=== PATIENT | female | born 1960 | race African-American/Black ===

== ENCOUNTER 2016-05-10 15:13 | Emergency (ER) | payer SELFPAY ==
--- NOTE | 2016-05-10 16:12 | ERRECORD ---
[facility] EMERGENCY RECORD HPI GENERAL (15:33 MBRI) CHIEF COMPLAINT: Patient presents for evaluation of 55 yo female presents to the ED after having been found sitting outside by someone who knew her. They apparently called the police and she was brought to the ED. Pt is without complaints at this time. No pain, no injuries, no diff breathing, no SI/HI reported. No hallucinations reported. She denies any issues and states feeling her normal state of health. [facility] to stay there at this time. HISTORIAN: History provided by patient. LOCATION: No localizing symptoms. QUALITY: Unable to describe the quality of the pain. TIME COURSE: Patient unable to describe onset of symptoms. ASSOCIATED WITH: No associated symptoms, Denies any other complaints. EXACERBATED BY: Patient's condition exacerbated by nothing. RELIEVED BY: Patient's condition relieved by nothing. ROS (15:35 MBRI) CONSTITUTIONAL: Negative constitutional review of systems, Historian denies chills, denies fever. EYES: Negative eye review of systems. ENT: Historian denies rhinorrhea, denies sore throat. CARDIOVASCULAR: Historian denies chest pain, denies dyspnea on exertion. RESPIRATORY: Historian denies cough, denies shortness of breath. GI: Negative gastrointestinal review of systems, Historian denies abdominal pain, denies diarrhea, denies nausea, denies vomiting. MUSCULOSKELETAL: Historian denies injury, Denies any musculoskeletal pain. SKIN: Negative skin review of systems, Historian denies skin changes. NEUROLOGIC: Negative neurologic review of systems, Historian denies focal weakness, denies sensory changes. PSYCHIATRIC: Negative psychiatric review of systems, Historian denies anxiety, denies depression, denies hallucinations, denies homicidal ideation, denies suicidal ideation. PAST MEDICAL HISTORY (15:26 LGIB) MEDICAL HISTORY: Notes: pt states "I have no health problems", irregular heart rhythm,, Past medical history includes history of hypertension. (poor historian). FEMALE SURGICAL HISTORY: pacemaker. PSYCHIATRIC HISTORY: Psychiatric history includes, anxiety. SOCIAL HISTORY: Patient denies alcohol use, Patient denies drug use, Patient has no smoking history. KNOWN ALLERGIES &a-1R&a+25V*p+0X*s8713N*c202B*c15G*c2P*p-0X&a-25V&a+1R Name: Farrah Jon : 1960 F55 MedRec: [id number] AcctNum: [id number] Prepared: Maggie May 13, 2016 10:53 by Interface Page 1 of 3 pMD [facility] EMERGENCY RECORD No Known Drug Allergies CURRENT MEDICATIONS (15:48 LGIB) None VITAL SIGNS (15:40 LGIB) VITAL SIGNS: BP: 158/100, Pulse: 76, Resp: 16 (Non-Labored), Temp: 98.2 (Oral), Pain: 0, O2 sat: 96 on Room Air, Time: 05/10/2016 15:40. PHYSICAL EXAM (15:35 MBRI) CONSTITUTIONAL: Vital Signs Reviewed, Nursing notes reviewed. HEAD: Head exam included findings of head atraumatic, normocephalic. EYES: Eye exam included findings of eyelids normal to inspection, Pupils equally round and reactive to light, Extraocular muscles intact. ENT: Ear exam normal, external ear normal, tympanic membranes normal, Pharynx exam normal. NECK: Neck exam normal, no cervical adenopathy, no tenderness. RESPIRATORY CHEST: Respiratory exam included findings of no respiratory distress, Breath sounds clear, No wheezing, No rales, No rhonchi. CARDIOVASCULAR: Cardiovascular exam included findings of heart rate regular rate and rhythm, Heart sounds normal, Carotids normal. ABDOMEN FEMALE: Abdominal exam included findings of abdomen nontender, Bowel sounds normal, no peritoneal signs, no rigidity, no guarding, no rebound. BACK: Back exam included findings of normal inspection, no tenderness. UPPER EXTREMITY: Upper extremity exam included findings of inspection normal, Radial pulse normal, no cyanosis, no clubbing, no edema. LOWER EXTREMITY: Lower extremity exam included findings of inspection normal, femoral pulses normal, no cyanosis, no clubbing, no edema, no tenderness noted. NEURO: Neuro exam findings include patient oriented to person, place and time, Speech normal, no focal motor deficits. SKIN: Skin exam included findings of skin warm, dry, and normal in color. PROBLEM LIST No recorded problems DIAGNOSIS (15:31 MBRI) FINAL: PRIMARY: medical screening evaluation. PRESCRIPTION No recorded prescriptions &a-1R&a+25V*p+0X*c3645S*c202B*c15G*c2P*p-0X&a-25V&a+1R Name: Farrah Jon : 1960 F55 MedRec: [id number] AcctNum: [id number] Prepared: TueMay 13, 2016 10:53 by Interface Page 2 of 3 pMD [facility] EMERGENCY RECORD DISPOSITION PATIENT: Disposition Type: Discharge, Disposition: *Discharge Home, Condition: Good. (15:31 MBRI) Patient left the department. (15:55 LGIB) Hudson: LGIB=CR Abraham, Irasema MBRI=DO Mireles Matthew &a-1R&a+25V*p+0X*d4470I*c202B*c15G*c2P*p-0X&a-25V&a+1R Name: Farrah Jon : 1960 F55 MedRec: [id number] AcctNum: [id number] Prepared: TueMay 13, 2016 10:53 by Interface Page 3 of 3 pMD MTDD
--- NOTE | 2016-05-10 16:15 | PICIS ---
[facility] EMERGENCY RECORD TRIAGE (TueMay 10, 2016 15:25 LGIB) PATIENT: NAME: Farrah Jon, AGE: 55, GENDER: female, : Tue1960, TIME OF GREET: TueMay 10, 2016 15:13, PREFERRED LANGUAGE: Bahamian, ETHNICITY: Not or , ECODE BILLING MAP: [facility], SSN: [id number], Zip Code: [address], KG WEIGHT: 115.21, PHONE: , , , PERSON ID: [id number], PAYMENT: [employer] Self Pay, PCP: none. (TueMay 10, 2016 15:25 LGIB) COMPLAINT: psych eval. (TueMay 10, 2016 15:25 LGIB) ADMISSION: URGENCY: 3 Urgent, ADMISSION SOURCE: Home, TRANSPORT: LAW ENFORCEMENT, BED: ER -04. (TueMay 10, 2016 15:25 LGIB) ASSESSMENT: Additional Triage notes: patient brought to ER because she was seen sitting outside a fast food restaurant. Per police, bystander knows her and thinks she may need assistance with her living situation. Patient denies HI or SI. Pt does not have hallucinations and is AOX4. (15:25 LGIB) SIRS SCORING: Heart Rate 55-109 (0), Temp range 96.8-101.1 (0), respiratory rate 12-24 (0), Mental Status altered: no (0), Total SIRS Score 0. (15:51 LGIB) PROVIDERS: TRIAGE NURSE: Irasema Abraham RN. (TueMay 10, 2016 15:25 LGIB) KNOWN ALLERGIES No Known Drug Allergies CURRENT MEDICATIONS (15:48 LGIB) None VITAL SIGNS (15:40 LGIB) VITAL SIGNS: BP: 158/100, Pulse: 76, Resp: 16 (Non-Labored), Temp: 98.2 (Oral), Pain: 0, O2 sat: 96 on Room Air, Time: 05/10/2016 15:40. NURSING ASSESSMENT: PSYCH/SOCIAL (15:28 LGIB) CONSTITUTIONAL: Patient complains of psych eval, Patient has no complaints. denies HI or SI. Patient brought to ER because bystander wanted to help her with her living situation. PSYCH/SOCIAL: Psychiatric/social assessment findings include affect, flat, no complaint of visual hallucinations, no complaint of auditory hallucinations, no complaint of tactile hallucinations, no suicidal ideations, no homicidal ideations, no reported overdose. SAFETY: Side rails up, Cart/Stretcher in lowest position, Call light within reach, Hospital ID band on. NURSING PROCEDURE: DISCHARGE NOTE (15:52 LSMI) DISCHARGE: Patient discharged to home, ambulating without assistance, patient walking, unaccompanied, Simple or moderate discharge teaching performed, Notes: PT AMBULATORY TO WAITING ROOM TO AWAIT RIDE. PT AOX4. &a-1R&a+25V*p+0X*f1819A*c202B*c15G*c2P*p-0X&a-25V&a+1R Name: Farrah Jon : 1960 F55 MedRec: [id number] AcctNum: [id number] Prepared: [facility] May 13, 2016 10:53 by Interface Page 1 of 4 D [facility] EMERGENCY RECORD NURSING PROCEDURE: NURSE NOTES (15:45 LSMI) NURSES NOTES: Notes: G[facility]INA DISPATCH NOTIFED OF PTS DC. STATES SHE WILL NOTIFY OFFICER DAVID. HPI GENERAL (15:33 MBRI) CHIEF COMPLAINT: Patient presents for evaluation of 55 yo female presents to the ED after having been found sitting outside by someone who knew her. They apparently called the police and she was brought to the ED. Pt is without complaints at this time. No pain, no injuries, no diff breathing, no SI/HI reported. No hallucinations reported. She denies any issues and states feeling her normal state of health. [facility] stay [facility] at this time. HISTORIAN: History provided by patient. LOCATION: No localizing symptoms. QUALITY: Unable to describe the quality of the pain. TIME COURSE: Patient unable to describe onset of symptoms. ASSOCIATED WITH: No associated symptoms, Denies any other complaints. EXACERBATED BY: Patient's condition exacerbated by nothing. RELIEVED BY: Patient's condition relieved by nothing. ROS (15:35 MBRI) CONSTITUTIONAL: Negative constitutional review of systems, Historian denies chills, denies fever. EYES: Negative eye review of systems. ENT: Historian denies rhinorrhea, denies sore throat. CARDIOVASCULAR: Historian denies chest pain, denies dyspnea on exertion. RESPIRATORY: Historian denies cough, denies shortness of breath. GI: Negative gastrointestinal review of systems, Historian denies abdominal pain, denies diarrhea, denies nausea, denies vomiting. MUSCULOSKELETAL: Historian denies injury, Denies any musculoskeletal pain. SKIN: Negative skin review of systems, Historian denies skin changes. NEUROLOGIC: Negative neurologic review of systems, Historian denies focal weakness, denies sensory changes. PSYCHIATRIC: Negative psychiatric review of systems, Historian denies anxiety, denies depression, denies hallucinations, denies homicidal ideation, denies suicidal ideation. PAST MEDICAL HISTORY (15:26 LGIB) MEDICAL HISTORY: Notes: pt states "I have no health problems", irregular heart rhythm,, Past medical history includes history of hypertension. (poor historian). FEMALE SURGICAL HISTORY: pacemaker. PSYCHIATRIC HISTORY: Psychiatric history includes, &a-1R&a+25V*p+0X*n6027X*c202B*c15G*c2P*p-0X&a-25V&a+1R Name: Farrah Jon : 1960 F55 MedRec: [id number] AcctNum: [id number] Prepared: Maggie May 13, 2016 10:53 by Interface Page 2 of 4 D [facility] EMERGENCY RECORD anxiety. SOCIAL HISTORY: Patient denies alcohol use, Patient denies drug use, Patient has no smoking history. PHYSICAL EXAM (15:35 MBRI) CONSTITUTIONAL: Vital Signs Reviewed, Nursing notes reviewed. HEAD: Head exam included findings of head atraumatic, normocephalic. EYES: Eye exam included findings of eyelids normal to inspection, Pupils equally round and reactive to light, Extraocular muscles intact. ENT: Ear exam normal, external ear normal, tympanic membranes normal, Pharynx exam normal. NECK: Neck exam normal, no cervical adenopathy, no tenderness. RESPIRATORY CHEST: Respiratory exam included findings of no respiratory distress, Breath sounds clear, No wheezing, No rales, No rhonchi. CARDIOVASCULAR: Cardiovascular exam included findings of heart rate regular rate and rhythm, Heart sounds normal, Carotids normal. ABDOMEN FEMALE: Abdominal exam included findings of abdomen nontender, Bowel sounds normal, no peritoneal signs, no rigidity, no guarding, no rebound. BACK: Back exam included findings of normal inspection, no tenderness. UPPER EXTREMITY: Upper extremity exam included findings of inspection normal, Radial pulse normal, no cyanosis, no clubbing, no edema. LOWER EXTREMITY: Lower extremity exam included findings of inspection normal, femoral pulses normal, no cyanosis, no clubbing, no edema, no tenderness noted. NEURO: Neuro exam findings include patient oriented to person, place and time, Speech normal, no focal motor deficits. SKIN: Skin exam included findings of skin warm, dry, and normal in color. EVENTS TRANSFER: Triage to Emergency Emergency Room -04. (TueMay 10, 2016 15:25 LGIB) Removed from Emergency Emergency Room -04. (15:55 LGIB) PROBLEM LIST No recorded problems DIAGNOSIS (15:31 MBRI) FINAL: PRIMARY: medical screening evaluation. DISPOSITION PATIENT: Disposition Type: Discharge, Disposition: *Discharge Home, Condition: Good. (15:31 MBRI) Patient left the department. (15:55 LGIB) &a-1R&a+25V*p+0X*f2299T*c202B*c15G*c2P*p-0X&a-25V&a+1R Name: Farrah Jon : 1960 F55 MedRec: [id number] AcctNum: [id number] Prepared: TueMay 13, 2016 10:53 by Interface Page 3 of 4 pMD [facility] EMERGENCY RECORD INSTRUCTION (15:32 MBRI) DISCHARGE: MEDICAL SCREENING EXAM, NONURGENT. FOLLOWUP: [facility], [facility], [address] [place], [place] [id number], , [facility], MENTAL HEALTH, Psychiatry, [address] [place] [address], , Follow up with Primary Care Physician as needed. SPECIAL: Please return for any further issues or concerns, we would be happy to see you. We hope you feel better soon. Follow-up with your primary physician as needed Tylenol or Advil for Pain. PRESCRIPTION No recorded prescriptions IMAGING (15:53 LSMI) *DISCHARGE INSTRUCTIONS RECEIPT: Image captured from scanner. ADMIN (TueMay 13, 2016 10:47 MBRI) DIGITAL SIGNATURE: [place], DO, Tomasz. [place]: LGIB=CR Abraham Lauren LSMI=TATIANA Eugene Leah MBRI=DO Mireles Matthew &a-1R&a+25V*p+0X*l5426O*c202B*c15G*c2P*p-0X&a-25V&a+1R Name: Farrah Jon : 1960 F55 MedRec: [id number] AcctNum: [id number] Prepared: TueMay 13, 2016 10:53 by Interface Page 4 of 4 pMD [facility] MEDICATION RECONCILIATION You were seen in the Emergency Department on: TueMay 10, 2016 KNOWN ALLERGIES No Known Drug Allergies HOME MEDICATIONS None Notes from the emergency department Reviewed with patient &a-1R&a+25V*p+0X*o3207X*c202B*c15G*c2P*p-0X&a-25V&a+1R Name: Farrah Jon : 1960 F55 MedRec: [id number] AcctNum: [id number] Prepared: TueMay 13, 2016 10:53 by Interface pMD [facility]
== END 2016-05-10 15:52 | disposition home or self-care (01) ==
LOC: BURERS 15:13
DX: Z00.8 Encounter for other general examination (principal); I10 Essential (primary) hypertension; F41.9 Anxiety disorder, unspecified
CPT/HCPCS: 99283

== ENCOUNTER 2016-07-20 23:44 | Emergency (ER) | payer SELFPAY ==
[2016-07-21] MEDS ORDERED: Carvedilol 3.125 MG TAB PO SCH (00:01)
[2016-07-21 00:39] LABS: #Basophils 0.1 thou/uL (0.0-0.2); #Eosinphils 0.4 thou/uL (0.0-0.7); #Lymphocytes 1.3 thou/uL (1.20-3.40); #Monocytes 0.6 thou/uL (0.11-0.59); %Basophils 0.7 % (0.0-1.0); %Eosinophils 4.3 % (0.0-10.0); %Monocytes 6.8 % (0.0-10.0); %Neutrophils 74.2 % (42.0-75.0); Mean Corpuscular HGB CONC 32.1 g/dL (32.0-36.0); Mean Corpuscular Hemoglobin 28.2 pg (27.0-31.0); Mean Corpuscular Volume 87.6 fl (81.0-99.0); Mean Platelet Volume 9.3 fL (7.4-10.4); Platelet Count 238 thou/uL (130-400); RBC Distribution Width 12.4 % (11.5-14.5); Red Blood Cell (RBC) Count 4.98 mill/uL (4.20-5.40); White Blood Cell (WBC) Count 9.4 thou/uL (4.8-10.8)
[2016-07-21 00:48] LABS: Alcohol Less than 10 mg/dL (Less than 10); Anion Gap 14 mmol/L (10-20); BUN (Urea Nitrogen) 16 mg/dL (9.8-20.1); Calc. Creatinine Clearance 0 mL/min (70-130); Carbon Dioxide 22 mmol/L (22-29); Chloride 110 mmol/L (98-107); Estimated GFR-MDRD 72; Glucose 83 mg/dL (70-105); Potassium 4.3 mmol/L (3.5-5.1); Sodium 142 mmol/L (136-145)
[2016-07-21 00:55] LABS: CKMB 1.9 ng/mL (0-6.6); Troponin I Less than 0.010 ng/mL (< 0.028)
[2016-07-21 00:56] LABS: Calcium 9.1 mg/dL (7.8-10.44)
--- NOTE | 2016-07-21 07:10 | RAD ---
PORTABLE CHEST: Date: 07/21/16 An AP portable film at 0017 hours is compared with a 07/05/16 study done at [facility]. FINDINGS: The heart remains normal in size. The lungs are clear. There is no pulmonary edema, vascular congest ion, or pleural effusion. Cardiac pacer is noted. The mediastinum is unremarkable. IMPRESSION: Stable exam showing no acute findings. POS: [facility]
== END 2016-07-21 01:09 | disposition home or self-care (01) ==
LOC: BURERS 23:44
DX: I10 Essential (primary) hypertension (principal); F41.9 Anxiety disorder, unspecified; D64.9 Anemia, unspecified
CPT/HCPCS: 36415; 71010; 80048; 80307; 82553; 84484; 85025; 93005